=== PATIENT | female | born 1985 | race Caucasian/White ===

== ENCOUNTER 2021-08-08 06:05 | Day surgery (SDC) | payer MEDICAID, SELFPAY ==
--- NOTE | 2021-08-07 | IMM_PTH ---
PATIENT: JM BAL LOC: [facility] – [place] U#:[id number] AGE/SX: 36/F ROOM: RE08/08/[address]: Dr. Huma Russell DO : 1985 BED: DIS: 08/08/2021 SPEC #: [id number] RECD: 08/09/21 14:57 STATUS: PATEL RELibrado #: [id number] ROGERIO: 08/07/21 00:[address]: Huma Russell DEPT: IMMUNOHISTOCHEMISTRY RECD BY: Cherelle Song ENTERED: 08/09/21 14:59 SP TYPE: IMMUNO OTHR DR: ZENA Alvarez Tissues: A - UTERINE CERVIX LEEP B - UTERINE CERVIX LEEP Procedures: p16 (initial) KI-67 (add) P16 (add) PHYSICIAN & INSTITUTION [place] [id number] SPECIMEN INFORMATION: Tissue Source: A ? Cervix, LEEP conization, B ? Posterior lip of ectocervix, LEEP conization Clinical Info: High-grade cervical dysplasia Specimen Number: [id number] A2-A4, B1 CPT code: 66812 x2, 61876 x6 METHODOLOGY: Deparaffinized sections of prefer/formalin-fixed tissue or PAP/DQ stained slides are incubated with monoclonal/polyclonal antibodies/oligonucleotide probes. Localization is made via biotin free immunoperoxidase method. Appropriate controls are performed and reacted as expected. Results on target cell population are indicated in the following table: RESULTS: ANTIBODY / CLONE RESULT Block A2 P16 (E6H4) positive, block-like Ki-67 (30-9) positive, moderate to high Block A3 P16 (E6H4) positive, block-like Ki-67 (30-9) positive, moderate to high Block A4 P16 (E6H4) positive, block-like Ki-67 (30-9) positive, moderate Block B P16 (E6H4) positive, block-like Ki-67 (30-9) positive, moderate to high These tests were developed and their performance characteristics determined by [facility]. They may not have been cleared or approved by the U.[place]. Food and Drug Administration. The FDA has determined that such clearance or approval is not necessary. The above immunohistochemical/dualISH markers are ordered and reviewed by the Pathologist. INTERPRETATION: A. Cervix, LEEP conization: Mild, moderate and severe squamous dysplasia, MAIDA I-III (HSIL). B. Posterior lip of ectocervix, LEEP conization: Focal moderate squamous dysplasia, MAIDA II (HSIL). AM:nancy 08/12/2021 Comment: Mild squamous dysplasia focally extends to the ectocervical and endocervical margin of excision.
--- NOTE | 2021-08-07 | CER_PTH ---
PATIENT: JM BLA LOC: [facility] – [place] U#:[id number] AGE/SX: 36/F ROOM: RE08/08/[address]: Dr. Huma Russell DO : 1985 BED: DIS: 08/08/2021 SPEC #: [id number] RECD: 08/08/21 10:58 STATUS: PATEL CALEB #: [id number] ROGERIO: 08/07/21 00:[address]: Huma Russell DEPT: SURGICAL PATHOLOGY RECD BY: Michael Bledsoe ENTERED: 08/08/21 10:59 SP TYPE: CERV OTHR DR: ZENA Alvarez Tissues: A - Uterine cervix, NOS B - Uterine cervix, NOS C - Endocervical Procedures: Surgery Specimen Level IV Surgery Specimen Level V HEADER OPERATION: LEEP cone with ECC PRE-OP DIAGNOSIS: High-grade cervical dysplasia TISSUE SUBMITTED: A ? Cervical cone, stitch at 12 o?clock, B ? Posterior lip ectocervix, C ? Endocervical curettings MICROSCOPIC DIAGNOSIS A. Cervix, LEEP conization: Mild, moderate and focal severe squamous dysplasia, MAIDA I-III (HSIL). Changes consistent with HPV cytopathic effect. Squamous metaplasia and chronic inflammation. See comment. B. Posterior lip of ectocervix, LEEP conization: Focal moderate squamous dysplasia, MAIDA II (HSIL). See comment. C. Endocervix, curettings: Scant strips of benign superficial endocervix. No evidence of dysplasia. AM:nancy 08/09/2021 COMMENT A. Low grade dysplasia focally extends to the ectocervical and endocervical margins of excision. Results from immunohistochemistry ([id number]) for surrogate HPV marker (p16) will be reported separately. B. Results from immunohistochemistry ([id number]) for surrogate HPV marker (p16) will be reported separately. Margins are free of dysplasia. Case has been reviewed in consultation with Dr. Thomas who concurs with the above diagnosis. IDC:SJ MICROSCOPIC DESCRIPTION Slides are reviewed. GROSS DESCRIPTION A - Received in fixative is one container labeled with the patient's name and designated cervical cone. The specimen consists of a C-shaped fragment of pink-painting mucosa with attached submucosal tissue measuring 2.5 x 1.5 x 0.3 cm. The specimen is inked, serially sectioned and totally submitted in four cassettes as follows: 1 - 12 to 3 o?clock, 2 - 3 to 6 o?clock, 3 - 6 to 9 o?clock, 4 - 9 to 12 o?clock. B - Received in fixative is one container labeled with the patient's name and designated posterior lip ectocervix. The specimen consists of an irregular fragment of pink-painting soft tissue measuring 0.8 x 0.7 x 0.2 cm. The specimen is inked, serially sectioned and totally submitted in one cassette. C - Received in fixative is one container labeled with the patient's name and designated endocervical curettings. The specimen consists of a scant amount of soft tissue. The specimen is totally submitted for cell block preparation. / AM:nancy 08/08/21 TC:0 CPT: 59462 x2, 40469
[2021-08-08] VITALS (11 sets, daily range): BP systolic 102–115; BP diastolic 32–60; PULSE 59–87; RESP 16; TEMP 36.2–36.8; O2SAT 98–100; BMI 24.1
[2021-08-08 06:33] LABS: Internal QC Validated? YES +Cl - CLEAR BKGD
[2021-08-08 06:34] LABS: Pregnancy, Urine Negative Negative
[2021-08-08] MEDS: Lactated Ringers 1,000 ML 100 ML IV (06:58)
[2021-08-08 07:14] LABS: Hematocrit 42.2 % (37-47); Hemoglobin 13.9 g/dL (12.0-15.0); Mean Corp Hgb Conc 32.9 g/dL (32-36); Mean Corpuscular Volume 91.1 fL (81-99); Platelet Count 319 K/mm3 (150-450); RBC Distribution Width CV 12.9 % (11.6-14.6); RBC Distribution Width SD 43.3 fl (35.1-43.9); Red Blood Count 4.63 M/mm3 (4.2-5.4); White Blood Count 7.9 K/mm3 (4.4-11.0)
--- NOTE | 2021-08-08 07:27 | PCM.HP.OB ---
HPI - General HPI Narrative JM BAL, is a 36 F who presents for scheduled LEEP procedure with ECC for CIN2. PFSH PFSH Medical History (Updated 08/08/21 @ 07:[address] Huma Russell DO) Anemia Arthritis Back pain back problems Bone fracture calium levels Cardiology follow-up encounter Carpal tunnel syndrome Chronic bronchitis Constipation emotional problems Gastrointestinal problem GERD (gastroesophageal reflux disease) Goiter Headache hearing problems High triglycerides History of stress test Leg cramps Migraine headache Pneumonia Seasonal allergies Smoker ulcers UTI (urinary tract infection) Vision problems Vitamin deficiency Wears contact lenses Wears glasses Home Medications cholecalciferol (vitamin D3) 25 mcg (1,000 unit) capsule 1 cap PO DAILY 01/24/21 [History Last Taken Unknown] cyanocobalamin (vitamin B-12) 1,000 mcg/mL injection solution 1,000 mcg SC .QOWEEK ml 01/24/21 [History Last Taken Unknown] ergocalciferol (vitamin D2) 1,250 mcg (50,000 unit) capsule 1,250 mcg PO QWEEK 01/24/21 [History Last Taken Unknown] ferrous sulfate 325 mg (65 mg iron) tablet 325 mg PO DAILY 01/24/21 [History Last Taken Unknown] ibuprofen 800 mg tablet 1 tab PO PRN PRN 01/24/21 [History Last Taken Unknown] multivitamin 1 tab PO DAILY 01/24/21 [History Last Taken Unknown] syringe with needle 3 mL 25 x 1 /2 #100 ea 01/24/21 [History Last Taken Unknown] topiramate 50 mg tablet 50 mg PO DAILY 01/24/21 [History Last Taken Unknown] azelastine 1 spray INTRANASAL BID 08/01/21 [History Last Taken Unknown] lorazepam 0.5 mg PO PRN PRN 08/01/21 [History Last Taken Unknown] Allergy/AdvReac Type Severity Reaction Status Date / Time No Known Allergies Allergy Verified 08/01/21 10:58 Family History Other Anemia Anxiety Autoimmune disease Cervical cancer Colon cancer Depression High cholesterol Liver disease Ovarian cancer Thyroid disorder Surgical History (Updated 08/01/21 @ 11:10 by Eloina Ayers) History of reversal of tubal ligation Hx of tonsillectomy Hx of tubal ligation Social History (Updated 03/04/21 @ 10:[address] Mandeep Burdick MD) Smoking Status: Current some day smoker tobacco type: cigarettes ROS ROS Narrative Negative ROS other than vaginal spotting Vital Signs Vital Signs Vital Signs: 08/08/21 06:56 08/08/21 06:59 Temperature 98.2 F Temperature Source Temporal Pulse Rate 80 Respiratory Rate 16 Respiratory Pattern Normal Blood Pressure 111/51 L Blood Pressure Mean 71 Blood Pressure Source Monitor Blood Pressure Position Semi-Fowlers Blood Pressure Location Right Arm Pulse Ox 100 Oxygen Delivery Method Room Air Weight Weight: 173 lb 1.006 oz Body Mass Index (BMI) 24.1 Physical Exam Const alert and no apparent distress General Appearance: comfortable HEENT normocephalic Chest Chest: symmetrical chest wall rise GI non-distended Labs Labs Labs: Blood Type Pending Antibody Screen Pending Hct 42.2 % (37-47) Hgb 13.9 g/dL (12.0-15.0) Assessment & Plan (1) MAIDA II (cervical intraepithelial neoplasia II): PLAN: See scanned in H&P. Patient seen in pre-op. Consent signed in the office after discussion of r/b/a to LEEP with ECC. Reviewed procedure and history today. No changes noted and patient desires to proceed as planned.
--- NOTE | 2021-08-08 07:30 | OP.PCM_ITS ---
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 She was prepped and draped in the dorsal lithotomy position using yellow fin stirrups. An insulated speculum was placed into the vagina. Lugol's solution was placed over the cervix. 5 cc of local anesthetic was injected into the stroma of the cervix circumferentially. A size 2.0 x 1.5 cm loop electrode was used to obtain a cone biopsy using a blended current of 45 W cutting 45 W coagulation. An additional biopsy was taken of the posterior lip of the cervix. After excision of the cone biopsy, an endocervical curettage was taken. The cervical cone biopsies and endocervical curettings were sent to pathology for review. Using a rollerball the cervical bed was made hemostatic. Hemostasis was noted. Monsel solution was placed. All instruments were removed from the vagina. Vaginal sweep was performed. Instrument and sponge counts were correct. Patient was taken recovery in stable condition. Grafts/Implants Used: None Procedure Start Time: 07:46 Procedure Stop Time: 07:58 Complications None Admit VTE Documentation VTE Present on Admission: No VTE Mechan Device Prophylaxis: SCD's
--- NOTE | 2021-08-08 07:35 | PCM.DC ---
Discharge Instructions Diet Discharge Diet: No restrictions Activity Discharge Activity: [address] (After 24 hours) Return to work on:: 08/12/21 May resume sexual activity in: 4 weeks (Nothing in the vagina, no hot tubs, no baths, no pools) Weight Bearing Status: Weight bearing as tolerated Lifting Restrictions: No restrictions Additional Activity Instructions:: Nothing in the vagina for 4 weeks Dressing / Incision Call your doctor if you observe: Fever of 101 or Higher, Inability to urinate, Inability to have a bowel movement, Using more than 1 pad per hour, Shortness of breath, Dizziness, Fainting spells, Swelling in the ankles, Chest pain, Increased palpitations (irregular heartbeat), Calf discomfort and Uncontrolled pain Follow Up Care Please Follow Up With: Drew When: 1-2 weeks Test Results: Test results from this visit will be discussed in further detail at your follow-up appointment, if applicable. Discharge Plan Admission Attending Provider: Huma Russell Primary Care Provider: Cori Bruce Discharge Orders/Prescriptions Prescriptions: No Action topiramate 50 mg tablet 50 mg PO DAILY RF: 0 ferrous sulfate 325 mg (65 mg iron) tablet 325 mg PO DAILY RF: 0 cholecalciferol (vitamin D3) 25 mcg (1,000 unit) capsule 1 cap PO DAILY RF: 0 ergocalciferol (vitamin D2) 1,250 mcg (50,000 unit) capsule 1,250 mcg PO QWEEK RF: 0 cyanocobalamin (vitamin B-12) 1,000 mcg/mL solution 1,000 mcg SC .QOWEEK RF: 0 multivitamin [Daily Multi-Vitamin] Tablet 1 tab PO DAILY RF: 0 (DME) syringe with needle 3 mL 25 x 1 1/2 3 mL 25 x 1 1/2 syringe See Rx Instructions ml .ROUTE .MEDSUPPLY Qty: 100 RF: 0 ibuprofen 800 mg tablet 1 tab PO PRN PRN (Reason: Pain) RF: 0 azelastine 137 mcg (0.1 %) aerosol,spray 1 spray INTRANASAL BID RF: 0 lorazepam 0.5 mg tablet 0.5 mg PO PRN PRN (Reason: Anxiety) RF: 0
[2021-08-08] MEDS: Lidocaine 1% /Epi 1:100 (20ml) 20 ML Vial (07:46)
[2021-08-08] MEDS: FERRIC SUBSULFATE 8 GM SOLN (07:50)
[2021-08-08] MEDS: Lubricating Jelly 60 GM Tube 30 GM TOPICAL (07:50)
[2021-08-08] MEDS: Iodine/Potassium Iodide 14ML Bottle 1 DRP TOPICAL (07:50)
== END 2021-08-08 09:45 | disposition home or self-care (01) ==
LOC: SDC 06:08 → AC 06:09
PROVIDERS: Anesthesiology; PCP Physician Assistant Medical; Referring Provider Obstetrics & Gynecology; Visit Provider Obstetrics & Gynecology
PROC: 0UBC7ZZ Excision of Cervix, Via Natural or Artificial Opening (ICD-10-PCS; CPT 57522; principal; 2021-08-08 07:15)
DX: D06.9 Carcinoma in situ of cervix, unspecified (principal); Z20.822 Contact with and (suspected) exposure to COVID-19; E06.3 Autoimmune thyroiditis; J42 Unspecified chronic bronchitis; E78.1 Pure hyperglyceridemia; D64.9 Anemia, unspecified; M19.90 Unspecified osteoarthritis, unspecified site; K21.9 Gastro-esophageal reflux disease without esophagitis; F41.9 Anxiety disorder, unspecified; F17.210 Nicotine dependence, cigarettes, uncomplicated; Z79.899 Other long term (current) drug therapy
CPT/HCPCS: 00940; 57522; 81025; 85027; 86850; 86900; 86901; 87426; 88305; 88307; 88341; 88342; C9803; J7120